=== PATIENT | female | born 1985 ===

== ENCOUNTER → 2023-11-18 07:32 | Outpatient (REF) | payer BC, SELFPAY | LOC: PNTC 07:32 | PROVIDERS: ATTENDING PHYSICIAN Obstetrics & Gynecology | DX: O24.419 Gestational diabetes mellitus in pregnancy, unspecified control (principal) | CPT/HCPCS: 59025; 76815 ==

== ENCOUNTER 2023-12-08 19:31 | Inpatient (IN) | payer BC, SELFPAY ==
[2023-12-08 19:59] VITALS: BP 134/83; BMI 30.1
[2023-12-08 20:17] LABS: Glucose - Point of Care 161 mg/dl (70-99)
[2023-12-08] MEDS: ANCEF 10 IV (21:21)
[2023-12-08] MEDS: BICITRA 30 ML PO (21:21)
[2023-12-08] MEDS: TYLENOL 1000 MG PO (21:21)
[2023-12-08 21:28] LABS: Hematocrit 33.8 % (37.0-47.0); Hemoglobin 11.4 g/dL (12.0-16.0); Mean Corp Hgb Conc. 33.7 g/dL (33.0-37.0); Mean Corpuscular Hgb 27.2 pg (27.0-31.0); Mean Corpuscular Volume 80.7 fL (81.0-99.0); Mean Platelet Volume 10.9 fL (7.4-10.4); Platelet Count 335 10^3/uL (130-400); Red Blood Cell Count 4.19 10^6/uL (4.20-5.40); Red Cell Dist. Width 15.2 % (11.5-14.5); White Blood Cell Count 11.9 10^3/uL (4.8-10.8)
[2023-12-08 21:45] LABS: ALT (SGPT) 48 U/L (0-35); AST (SGOT) 28 U/L (14-36); Albumin 3.1 g/dl (3.5-5.0); Alkaline Phosphatase 211 U/L (38-126); Blood Urea Nitrogen 15 mg/dl (7-17); Calcium 9.9 mg/dl (8.4-10.2); Carbon Dioxide 20 mmol/L (22-30); Chloride 104 mmol/L (98-107); Estimated Creatinine Clearance 99 ml/min; Glucose 163 mg/dl (70-99); Potassium 4.2 mmol/L (3.5-5.1); Sodium 135 mmol/L (135-145); Total Bilirubin 0.5 mg/dl (0.2-1.3); Total Protein 5.8 g/dl (6.3-8.2); eGFR > 60.00
[2023-12-09] MEDS: BENADRYL 25 MG IV (01:06)
--- NOTE | 2023-12-09 04:09 | DOWNTIME ---
There was a [employer] Downtime on 12/09/2023 from 0111 to 12/09/2023 at 0405. Downtime documentation of patient's care, including medication administrations, has been reconciled in the electronic record per guidelines. Refer to the
patient's paper chart under the miscellaneous tab to see printed paper medication records and downtime forms.
[2023-12-09] MEDS: TORADOL 15 MG IV ×3 (04:33→16:10)
[2023-12-09] MEDS: PITOCIN 30 UNITS/NSS 500 ML IV (04:40)
[2023-12-09] MEDS: BENADRYL 25 MG PO (05:58)
[2023-12-09 06:16] LABS: Hematocrit 27.5 % (37.0-47.0); Hemoglobin 9.2 g/dL (12.0-16.0); Mean Corp Hgb Conc. 33.5 g/dL (33.0-37.0); Mean Corpuscular Hgb 27.1 pg (27.0-31.0); Mean Corpuscular Volume 80.9 fL (81.0-99.0); Mean Platelet Volume 10.9 fL (7.4-10.4); Platelet Count 321 10^3/uL (130-400); Red Cell Dist. Width 15.1 % (11.5-14.5); White Blood Cell Count 23.8 10^3/uL (4.8-10.8)
--- NOTE | 2023-12-09 07:38 | W.PN.ANS.POP ---
Anesthesia Post Operative
- Anesthesia Post Op Note
Vital Signs Stable-See Nursing Note: Yes
Airway Patent: Yes
Adequate Pain Control: Yes
Change in Mental Status: No
Current Postoperative Nausea & Vomiting: No
Anesthesia Complications: No
General Anesthetic Recall: No
Unplanned Admission: No
Post Op Hydration Adequate: Yes
- -
Pt awake and alert and resting comfortably with no anesthesia c/o at time of post op visit.
[2023-12-09] MEDS: DELTASONE 20 MG PO (08:56)
[2023-12-09] MEDS: PRENATAL PLUS 1 TABLET PO (08:56)
[2023-12-09] MEDS: SENOKOT-S 1 TABLET PO (08:56)
[2023-12-09] MEDS: MYLICON 80 MG PO (21:22)
[2023-12-09] MEDS: TORADOL IV (22:34)
[2023-12-10] MEDS: TYLENOL 650 MG PO ×4 (01:55→20:25)
[2023-12-10] MEDS: MOTRIN 600 MG PO ×4 (01:56→20:25)
[2023-12-10] MEDS: BENADRYL 50 MG PO ×2 (02:03→08:16)
[2023-12-10] MEDS: DELTASONE 20 MG PO (08:09)
[2023-12-10] MEDS: FEOSOL 325 MG PO (08:09)
[2023-12-10] MEDS: PRENATAL PLUS 1 TABLET PO (08:09)
[2023-12-10] MEDS: MYLICON 80 MG PO (08:50)
[2023-12-10] MEDS: PERCOCET 5/325 1 TABLET PO (22:14)
[2023-12-11] MEDS: TYLENOL 650 MG PO ×3 (03:27→17:29)
[2023-12-11] MEDS: MOTRIN 600 MG PO ×3 (03:27→17:29)
[2023-12-11] MEDS: PRENATAL PLUS 1 TABLET PO (07:56)
[2023-12-11] MEDS: FEOSOL 325 MG PO (07:56)
[2023-12-11] MEDS: SENOKOT-S 1 TABLET PO (08:01)
[2023-12-11] MEDS: DELTASONE PO (09:25)
[2023-12-11] MEDS: DELTASONE 10 MG PO (09:29)
--- NOTE | 2023-12-11 13:57 | W.DS.TRANS ---
DC Summary - Aviation Technician
-
Discharge Instructions:
Discharge Diagnosis/Procedures Section
Instructions:
Stand-Alone Forms: LDRP Delivery
Changes to Home Medications: No
Discharge Medications:
DC Medications w/original date entered in [facility]
jetzdaos-cag-Iw-FA 1 mg tablet 1 tab PO DAILY Supplement 11/07/23
acetaminophen 325 mg tablet 650 mg PO Q4HPRN PRN mild pain #0 tabs 12/11/23
ferrous sulfate 325 mg (65 mg iron) tablet (FeroSul) 325 mg PO DAILY #30 tabs 12/11/23
ibuprofen 600 mg tablet 600 mg PO Q6HPRN PRN cramps #45 tabs 12/11/23
oxycodone-acetaminophen 5 mg-325 mg tablet 1 tab PO Q4HPRN PRN moderate pain #10 tabs 12/11/23
sennosides 8.6 mg-docusate sodium 50 mg tablet (Stool Softener-Stimulant Laxative) 1 tab PO DAILYPRN PRN constipation #0 tabs 12/11/23
Home Medication Changes
Pending Results: No
--- NOTE | 2023-12-11 15:07 | CM ---
CM met with new mother Khadra
Mom has named her son Itz.
Initially baby required admission to ICU - Nursery for RDS and hypoglycemia and has improved per mom
Mom reports she lives with at listed address
Mom reports she plan to breast feed her son and has a breast pump
Mom planning to take baby to [facility] for peds.
Mom reports she has all supplies for baby including car seat
Mom and baby will have ride home at d/c with Dad.
[2023-12-11 15:35] LABS: Syphilis/T. pallidum Ab Reflex Negative (Negative)
== END 2023-12-11 18:00 | disposition home or self-care (01) | DRG 788 ==
LOC: LDRP 19:31
PROVIDERS: ADMITTING PHYSICIAN Obstetrics & Gynecology
PROC: 10D00Z1 Extraction of Products of Conception, Low, Open Approach (ICD-10-PCS; 2023-12-08)
DX: O36.8130 Decreased fetal movements, third trimester, not applicable or unspecified (principal); O76 Abnormality in fetal heart rate and rhythm complicating labor and delivery; O24.424 Gestational diabetes mellitus in childbirth, insulin controlled; O36.63X0 Maternal care for excessive fetal growth, third trimester, not applicable or unspecified; Z3A.37 37 weeks gestation of pregnancy; Z37.0 Single live birth; O43.193 Other malformation of placenta, third trimester; O26.86 Pruritic urticarial papules and plaques of pregnancy (PUPPP); O90.81 Anemia of the puerperium
CPT/HCPCS: 88307; 80053; 82962; 85027; 86780; 86850; 86900; 86901